=== PATIENT | male | born 1970 | race African-American/Black ===

== ENCOUNTER 2019-11-04 10:13 | Day surgery (SDC) | payer BC ==
[2019-10-30 15:43] VITALS: BMI 30.9
[2019-11-04 12:38] VITALS: BP 130/87; PULSE 84; TEMP 98
== END 2019-11-04 12:50 | disposition home or self-care (01) ==
LOC: FASU-ENDO 10:13
PROVIDERS: ATTEND Internal Medicine Gastroenterology
PROC: 0DJD8ZZ Inspection of Lower Intestinal Tract, Via Natural or Artificial Opening Endoscopic (ICD-10-PCS; principal; 2019-11-04 11:22)
DX: Z12.11 Encounter for screening for malignant neoplasm of colon (principal); K64.8 Other hemorrhoids